=== PATIENT | female | born 1960 | race Caucasian/White ===

== ENCOUNTER 2019-01-14 10:19 | Day surgery (SDC) | payer OTHER ==
[~2019-01-14] VITALS: Ht 157.5 cm; Wt 64.5 kg
[~2019-01-14 10:19] MED LIST: CEFD300 PO; CEPH500 PO; Ciprodex Otic7.5 ML BOTHEARS; HORMONES; L-LYSINE600 MG; MAGNESIUM OXID500 MG; OXYC5; Oyster Shell C500 MG; PRED20 PO; Percocet 5-3251 EACH PO; Ultram50 MG PO; Vitamin B-Comp1 EACH
--- NOTE | 2019-01-14 11:25 | NUR ---
PT ADMITTED TO [facility]. AGREES WITH PLANNED SURGERY. LUNG SOUNDS CLEAR BUT DIMINSHED.
--- NOTE | 2019-01-14 15:05 | NUR ---
ASSUMED PT CARE. REPORT FROM OSMAR SONG. PT REPORTS 9/10 LEFT ARM PAIN. CIRC CHECK GOOD. HOWEVER, INDEX AND MIDDLE FINGER APPEAR SLIGHTLY SWOLLEN AND BRUISED. GOOD PLETH WITH BIOX/SAT PROBE ON INDEX FINGER. ICE APPLIED TO LEFT ARM AND LEFT ARM ELEVATED ON 2 PILLOWS. PT IS TEARFUL. MED WITH ZOFRAN 4 MG IVP X 1 AND MORPHINE SULFATE 2 MG IVP X1 FOR PAIN. ENCOURAGED TO TAKE SLOW, DEEP BREATHS.
--- NOTE | 2019-01-14 15:58 | NUR ---
ARRIVED INTO [employer] RECIEVED REPORT FORM ghislaine JOYCE TURNED CARE OVER TO KOFFI PRASAD
--- NOTE | 2019-01-14 16:34 | NUR ---
Patient up to Ambulate independently. Gait steady. Dressing to procedure site clean, dry, intact with no visible drainage, swelling, erythema or bruising noted. Discharge instructions reviewed with patient. Patient verbalizes understanding. Copy given to patient to take home. Discharged via wheelchair to private car for ride home.
== END 2019-01-14 22:56 | disposition home or self-care (01) ==
LOC: ORSCMMR 10:19 → ORD 12:30 → ORSCMMR 22:56
PROVIDERS: Orthopaedic Surgery
PROC: 0PSV34Z Reposition Left Finger Phalanx with Internal Fixation Device, Percutaneous Approach (ICD-10-PCS; principal; 2019-01-14 12:30)
DX: S62.617A Displaced fracture of proximal phalanx of left little finger, initial encounter for closed fracture (principal); B19.20 Unspecified viral hepatitis C without hepatic coma; F17.210 Nicotine dependence, cigarettes, uncomplicated
CPT/HCPCS: A9270-GY; J0690; J1100; J1885; J2270; J2405; J2704; J3010; J7120

== ENCOUNTER 2022-07-27 14:32 | Emergency (ER) | payer OTHER ==
[~2022-07-27] VITALS: Ht 154.9 cm; Wt 72.6 kg
[~2022-07-27 14:32] MED LIST changes: +Prednisone20 MG PO; +Robaxin-750750 MG PO
[2022-07-27 14:59] VITALS: BP 152/118
[2022-07-27] MEDS ORDERED: ONDA4ODT MM (16:31)
== END 2022-07-27 16:34 | disposition home or self-care (01) ==
LOC: ER 14:32
DX: F11.93 Opioid use, unspecified with withdrawal (principal); F17.210 Nicotine dependence, cigarettes, uncomplicated; Z88.1 Allergy status to other antibiotic agents; Z88.5 Allergy status to narcotic agent; Z88.8 Allergy status to other drugs, medicaments and biological substances; Z79.899 Other long term (current) drug therapy
CPT/HCPCS: 99283; A9270

== ENCOUNTER 2024-06-23 15:53 | Emergency (ER) | payer BC, MEDICARE, OTHER ==
[~2024-06-23] VITALS: Ht 152.4 cm; Wt 68.0 kg
[~2024-06-23 15:53] MED LIST changes: +ONDA4ODT MM
[2024-06-23] MEDS ORDERED: Ondansetron HCl 2 MG / ML 2ML Vial IV PRN (16:10)
[2024-06-23 17:09] LABS: BASOPHILS ABSOLUTE AUTO 0.03 K/mm3 (0.00-0.23); BASOPHILS PERCENT AUTO 1 % (0-2); EOSINOPHILS ABSOLUTE AUTO 0.05 K/mm3 (0.00-0.68); EOSINOPHILS PERCENT AUTO 2 % (0-6); Hematocrit 39.8 % (33.0-51.0); Hemoglobin 13.6 g/dL (11.5-16.0); IMMATURE GRAN ABSOLUTE AUTO 0.01 K/mm3 (0.00-0.10); IMMATURE GRAN PERCENT AUTO 0 % (0-1); LYMPHOCYTES ABSOLUTE AUTO 0.73 K/mm3 (0.84-5.20); LYMPHOCYTES PERCENT AUTO 23 % (21-46); MONOCYTES ABSOLUTE AUTO 0.36 K/mm3 (0.16-1.47); MONOCYTES PERCENT AUTO 11 % (4-13); Mean Corpuscular HGB 34.8 pg (26.0-34.0); Mean Corpuscular HGB Conc 34.2 g/dL (31.5-36.5); Mean Corpuscular Volume 102 fL (80-100); Mean Platelet Volume 9.6 fL (9.1-12.4); NEUTROPHILS ABSOLUTE AUTO 2.02 K/mm3 (1.96-9.15); NEUTROPHILS PERCENT AUTO 63 % (41-73); Platelet Count 140 K/mm3 (150-400); RDW Coefficient Variation 13.3 % (11.7-14.2); RDW Standard Deviation 49.7 fL (35.1-46.3); Red Blood Cell Count 3.91 M/mm3 (3.80-5.20)
[2024-06-23 17:38] LABS: Albumin, Blood 3.2 g/dL (3.4-5.0); Albumin/Globulin Ratio 0.7 (0.8-1.8); Bilirubin, Total 0.6 mg/dL (0.1-1.0); Bun/Creatinine Ratio 5.1 (12.0-20.0); Calcium, Blood 9.1 mg/dL (8.5-10.1); Creatinine, Blood 0.78 mg/dL (0.40-1.00); Globulin, Blood 4.3 g/dL (2.2-4.0); Potassium, Blood 4.4 mmol/L (3.5-5.5); Total Protein, Blood 7.5 g/dL (6.4-8.2)
[2024-06-23] MEDS ORDERED: SULFAMETHOXAZO1 EAC1 PO (20:41)
[2024-06-23] MEDS ORDERED: ALDACTONE100 MG PO (20:42)
[2024-06-23 20:45] LABS: Source, Urine Clean Catch
[2024-06-23 20:57] LABS: Appearance, Urine Clear (Clear); Bilirubin, Urine Neg (Neg); Blood, Urine Neg (Neg); Color, Urine Yellow (P-Yellow); Glucose Qualitative, Urine Neg (Neg); Ketones, Urine Neg (Neg); Leukocyte Esterase, Urine Neg (Neg); Nitrite, Urine Neg (Neg); Protein, Urine Neg (Neg); Urobilinogen, Urine NORM (Normal)
[2024-06-23] MEDS ORDERED: Furosemide 10 MG / ML 2ML Vial IV ONE (22:45)
[2024-06-23] MEDS ORDERED: OxyCODONE 10/Acetamin 325 TABLET PO ONE (23:15)
[2024-06-23 23:30] VITALS: BP 128/60
[2024-06-23] MEDS ORDERED: FURO20 PO (23:47)
== END 2024-06-24 00:14 | disposition home or self-care (01) ==
LOC: ER 15:53
PROVIDERS: Emergency Medicine
DX: R60.0 Localized edema (principal); F17.210 Nicotine dependence, cigarettes, uncomplicated; Z88.5 Allergy status to narcotic agent; Z88.1 Allergy status to other antibiotic agents; Z88.8 Allergy status to other drugs, medicaments and biological substances; Z79.899 Other long term (current) drug therapy
CPT/HCPCS: 71045; 80053; 81003; 83690; 83880; 84484; 85025; 93005; 93010; 93970; 96374; 99284-25; A9270; J1940